=== PATIENT | female | born 1935 | race Asian ===

== ENCOUNTER → 2016-11-25 | Outpatient (CLI) | payer MEDICARE, MEDICAID ==
[~2016-11-25] VITALS: Ht 152.4 cm; Wt 44.6 kg
[~2016-11-25] MED LIST: PRILOSEC 20MG20 MG PO; TENORMIN 5050 MG/TAB PO
[2016-11-25 09:10] VITALS: BP 160/74; PULSE 58
[2016-11-25 10:22] VITALS: BP 196/90; PULSE 60
[2016-11-25 10:38] VITALS: BP 189/93; PULSE 53
== END ==
LOC: COL.RAD 08:41
DX: D34 Benign neoplasm of thyroid gland (principal); E01.0 Iodine-deficiency related diffuse (endemic) goiter
CPT/HCPCS: 13756